=== PATIENT | male | born 1955 | race Caucasian/White ===

== ENCOUNTER 2023-02-05 14:58 | Inpatient (IN) | payer MEDICARE ==
[~2023-02-05] VITALS: Ht 188 cm; Wt 86.1 kg
--- NOTE | ~2023-02-05 | EKG ---
[facility] [address] [facility] [place], [place] [address] Draft EK completed, results pending confirmation PATIENT NAME: JANEEN PERALESJAIRON DWYER Electrocardiogram DATE OF : 53 PHYSICIAN: PRELIMINARY REPORT #: [id number] REPORT IS CONFIDENTIAL AND NOT TO BE RELEASED WITHOUT AUTHORIZATION
[2023-02-05 15:25] LABS: BASE EXCESS, BLOOD GAS -10.9 mmol/L (-2-2); O2 SATURATION, BLOOD GAS 72.6 % (95.0-100.0); OXYGEN RECEIVED, BLOOD GAS 100%; PCO2, BLOOD GAS 66.5 mmHg (35-45); PH, BLOOD GAS 7.09 (7.35-7.45); PO2, BLOOD GAS 59 mmHg (80-100); TOTAL CO2, BLOOD GAS 22.1
[2023-02-05 15:37] LABS: HEMATOCRIT 46.3 % (35.0-50.0); MCH 29.3 (27-36); MCHC 30.3 g/dl (30-36); MCV 96.6 fl (81-99); PLATELET COUNT 138 K/uL (140-440); RBC 4.79 M/ul (4.3-5.7); RDW 18.1 (10.5-15.0)
[2023-02-05 16:03] LABS: ALBUMIN/GLOBULIN RATIO 0.91 (1.1-2.4); ANION GAP 24.1 (7-21); BILIRUBIN, TOTAL 1.2 ng/dL (0.2-1.0); BUN/CREATININE RATIO 37.31 (6.0-28.6); CALCIUM 8.5 mg/dL (8.5-10.1); CREATININE, SERUM 1.34 mg/dL (0.70-1.30); POTASSIUM 5.1 mmol/L (3.5-5.1); PROTEIN, TOTAL 6.3 g/dL (6.4-8.2)
[2023-02-05 16:03] LABS: INFLUENZA B NAA NEGATIVE (NEGATIVE); RESPIRATORY SYNCYTIAL VIR NAA NEGATIVE (NEGATIVE)
[2023-02-05 16:05] LABS: BANDS, MANUAL DIFF 1; LACTIC ACID, BLOOD 12.9 mmol/L (0.4-2.0); LYMPHOCYTES, MANUAL DIFF 30; MONOCYTES, MANUAL DIFF 6; NEUTROPHILS, MANUAL DIFF 63
[2023-02-05 16:30] LABS: BASE EXCESS, BLOOD GAS -12.4 mmol/L (-2-2); HCO3, BLOOD GAS 18.2 mmol/L (22-26); O2 SATURATION, BLOOD GAS 81.7 % (95.0-100.0); OXYGEN RECEIVED, BLOOD GAS 100%; PCO2, BLOOD GAS 62.4 mmHg (35-45); PH, BLOOD GAS 7.08 (7.35-7.45); PO2, BLOOD GAS 71 mmHg (80-100); TOTAL CO2, BLOOD GAS 20.1
[2023-02-05 22:21] LABS: BASE EXCESS, BLOOD GAS -17.8 mmol/L (-2-2); HCO3, BLOOD GAS 14.3 mmol/L (22-26); O2 SATURATION, BLOOD GAS 93.3 % (95.0-100.0); OXYGEN RECEIVED, BLOOD GAS NOT STATED; PH, BLOOD GAS 6.98 (7.35-7.45); PO2, BLOOD GAS 99 mmHg (80-100); TOTAL CO2, BLOOD GAS 16.2
[2023-02-05 22:39] LABS: INR 1.27 (0.80-1.30); PROTIME 15.5 Sec (11.2-14.2)
[2023-02-06] VITALS (27 sets, daily range): BP systolic 88–103; BP diastolic 70–80
--- NOTE | 2023-02-06 01:05 | NUR ---
NEW EPI BAG HUNG, UNABLE TO SCAN AT THIS TIME.
--- NOTE | 2023-02-06 02:07 | NUR ---
PT ARRIVED TO UNIT, RN RECIEVED REPORT BEDSIDE. PT IS INTUBATED AT THIS TIME, VENTILATOR HOOKED UP SPO2 AT 95%. PT OG CONNECTED TO LOW INTERMITTENT SUCTION. PT REMAINS MAXED OUT ON LEVOPHED DRIP AND AT 12 MCG/MIN OF EPI, BP IS STABLE. BICARB IN D5% IS RUNNING AT 150ML/HR. PT IS UNRESPONSIVE TO PAIN AND DOES NOT HAVE A GAG REFLEX. PT PUPILS ARE INTERMITTENTLY CHANGING AND SLUGGISH. PROVIDER CALLED AND INFORMED. PT DOES HAVE SPONTANEOUS MOVEMENT OF THE RIGHT LEG BUT NOTHING PURPOSFUL. PT REMAINS CONNECTED TO THE COOLING BLANKET WITH A GOAL OF 98.6, PT TEMP AFTER TRANSPORTING IS 100.4. PT REMAINS WITHOUT RESTRAINTS THERE IS MINIMAL RESPONSE. ALL SEDATION MEDICATION IS OFF PRIOR TO ARRIVAL. URINE OUTPUT IS MINIMAL AT ROUGHLY 235ML SINCE ARRIVAL TO THE ER.
--- NOTE | 2023-02-06 02:25 | NUR ---
NEW BAG OF EPI HUNG, UNABLE TO SCAN AT THIS TIME
--- NOTE | 2023-02-06 03:45 | NUR ---
NEW BAG OF EPI HUNG, UNABLE TO SCAN AT THIS TIME.
--- NOTE | 2023-02-06 04:00 | NUR ---
PT REMAINS ON IV PRESSORS, BP STABLE AT THE MOMENT. PT ALSO REMAINS ON THE COOLING BLANKET WITH A GOAL TEMP OF 98.6, CURRENT TEMP OF 97.3. WARM BLANKETS ALSO APPLIED TO PT. PT BEGAN TO OVER BREATH VENTILATOR AND SPO2 BEGAN TO DESATURATE, RT INFORMED. PROVIDER AWARE, FENT DRIP STARTED AT 12.5MCG/HR FOR COMFORT. PT CONTINUES TO HAVE NON PURPOSFUL MOVEMENT IN REGINO FEET. PT ALSO GRIMANCES TO LIGHT WHEN CHECKING PUPILS. PT PUPILS INTERMITTENTLY UNEQUAL AND SLUGGISH. PT DOES NOT REPSOND TO PAIN AND DOES NOT HAVE A GAG.
[2023-02-06 05:32] LABS: MCH 29.7 (27-36); MCV 98.8 fl (81-99); RBC 4.35 M/ul (4.3-5.7); RDW 17.9 (10.5-15.0)
[2023-02-06 05:47] LABS: BANDS, MANUAL DIFF 18; MONOCYTES, MANUAL DIFF 5; NEUTROPHILS, MANUAL DIFF 22
[2023-02-06 05:48] LABS: ALBUMIN 2.3 g/dL (3.4-5.0); ALBUMIN/GLOBULIN RATIO 0.79 (1.1-2.4); ANION GAP 26.7 (7-21); BILIRUBIN, TOTAL 0.9 ng/dL (0.2-1.0); BUN/CREATININE RATIO 29.67 (6.0-28.6); CALCIUM 6.9 mg/dL (8.5-10.1); CREATININE, SERUM 1.82 mg/dL (0.70-1.30); POTASSIUM 5.7 mmol/L (3.5-5.1); PROTEIN, TOTAL 5.2 g/dL (6.4-8.2)
--- NOTE | 2023-02-06 06:00 | NUR ---
PT VS REMAIN UNCHANGED, PT CONTINUES TO REQUIRE PRESSORS AND REMAINS ON BICARB DRIP WELL FENTAYL DRIP. NO CHANGES IN NEURO STATUS. PT COMPLIANT WITH VENTILATOR AND MAINTAIN SATURATIONS. ORAL CARE PROVIDED. PT REMAINS ON COOLING BLANKET WITH A TEMP 98.6.
--- NOTE | 2023-02-06 06:02 | NUR ---
NEW BAG OF EPI HUNG AT THIS TIME, UNABLE TO SCAN
--- NOTE | 2023-02-06 07:15 | NUR ---
0700- REPORT RECEIVED FROM DIESEL FITTER MECHANIC RN. ALL QUESTIONS AND CONCERNS WERE ADDRESSED. GTTS FENTANYL 12.5MCG/HR EPINEPHRINE 9MCG NOREPINEPHRINE 46 SODIUM BICARB 125 PATIENT DIAZ IS NOTED TO HAVE A RASS OF -5. MOBILITY EXTREMELY IMPAIRED, ETT PRESENT VENT SETTINGS [id number], PEEP ,18 VTE ,500 RR, 22 NEURO- UNAROUSABLE, NO GAG NOTED CARDIAC- SR 80-95, GENERALIZED EDEMA, SCLERAL EDEMA, COOLING BLAKET RR- VENTILATOR SEE ABOVE SETTINGS GI/- INDWELLING FRANCO CATHETER PRESENT, NPO, OG PRESENT INTEGUMENTARY- MOTTLED SKIN, MULTIPLE SCRATCHES AND ABRASIONS PLAN- AWAITING FAMILY FROM [place] TO COME AND MAKE LIFE SUSTAINING DECISIONS
--- NOTE | 2023-02-06 07:20 | NUR ---
ER CALLED WITH PT BROTHER AMBER PHONE NUMBER - IT IS ON CHART AND THIS RN PROVIDED IT TO DR CARDOSO WHO IS IN UNIT REVIEWING CHART.
[2023-02-06 09:10] LABS: BASE EXCESS, BLOOD GAS -10.2 mmol/L (-2-2); HCO3, BLOOD GAS 17.7 mmol/L (22-26); O2 SATURATION, BLOOD GAS 92.3 % (95.0-100.0); OXYGEN RECEIVED, BLOOD GAS 100%; PCO2, BLOOD GAS 45.7 mmHg (35-45); PO2, BLOOD GAS 74 mmHg (80-100); TOTAL CO2, BLOOD GAS 19.1
--- NOTE | 2023-02-06 09:21 | NUR ---
PATIENT CURRENTLY ON VENT WITH CARE MEETING SCHEDULED FOR 11 AM WITH PATIENTS BROTHER AMBER. SPOKE WITH BERNADETTE IN SPIRITUAL CARE WHO WAS IN THE ER YESTERDAY WITH THE PATIENT. PATIENT AND HIS BROTHER LIVE IN [place], BUT WERE VISITING [place] FOR A HUNTING TRIP.
--- NOTE | 2023-02-06 10:11 | NUR ---
BROTHERS OF PATIENT IN ROOM AT THIS TIME WITH KATHERYN DOUGLAS.
--- NOTE | 2023-02-06 10:30 | NUR ---
1030- MD CARDOSO IN ROOM WITH ATIF'S BROTHERS ANGEL AND AMBER. DISCUSSING PLAN OF CARE AND POSSIBLE TRANSITIONT TO COMFORT CARE 1045-MD CARDOSO HAS CONFIRMED WITH PATIENTS ADULT DAUGHTERS THAT PATIENTS BROTHERS WHO ARE PRESENT WILL MAKE MEDICAL DECISION 1100- FAMILY HAS DECIDED TO TRANSITION TO COMFORT CARE. BROTHERS HAVE DECIDED TO LEAVE THE PREMISES DURING PATIENTS PASSING 1120- COMFORT CARE INITIATED
--- NOTE | 2023-02-06 10:38 | NUR ---
BROTHERS ANGEL AND RIDDHI IN ROOM. INDICATED THEY ARE IN CONTACT WITH PT'S DAUGHTERS. STATED THEY WERE UNSURPRISED BY EPISODE HAD NOTICED PT DECLINING IN HEALTH. ASSURED THEM OF MY ONGOING PRAYERS. PRAYED FOR PEACE AND COMFORT FOR PT AND FAMILY.
--- NOTE | 2023-02-06 10:56 | NUR ---
IN ROOM DR INFORMED BROTHERS OF EXPECTED OUTCOME. BROTHERS VOICED SUPPORT FOR WITHDRAWL OF CARE. DR. CARDOSO INDICATED NEED TO CALL DAUGTHERS. BROTHER PROVIDED NAMES AND NUMBERS OF DAUGHTERS AND INDICATED UNDERSTANDING. PROVIDED PASTORAL CARE TO BROTHERS. SAID PRAYER FOR PEACE AND COMFORT.
--- NOTE | 2023-02-06 11:18 | NUR ---
PER DR. OJEDA PATIENT FAMILY HAS CHOSEN TO WITHDRAWL CARE AT THIS TIME. CONTACT INFORMATION UPDATE FOR PATIENT BROTHER ANGEL [phone].
--- NOTE | 2023-02-06 11:42 | NUR ---
1142: SPIRITUAL CARE AT BEDSIDE. RT PRESENT 97.3 77/63 (70) NOREPINEPHRINE, EPINEPHRINE, AND SODIUM BICARB DRIP DC'D
--- NOTE | 2023-02-06 11:52 | NUR ---
PT COMFORT CARE , CALLED TO BEDSIDE FOR DC OF VENTILATOR AND EXTUBATION, PT WAS EXTUBATED , OG TUBE REMOVED AT THAT TIME RN AT BEDSIDE , CLEANED PT MOUTH AND IS PROVIDING COMFORT CARE , SPIRITUAL CARE AT BEDSIDE.
--- NOTE | 2023-02-06 12:58 | NUR ---
1253- PATIENT PASCUAL PERALES PEACEFULLY AT 1253 WITH SPIRITUAL CARE BRYSON AVALOS AT BEDSIDE. MD CARDOSO OTIFIED AND IS CURRENTLY ON PHONE WITH PATIENTS DAUGHTERS DAYNA AND RONALD COMFORT CARE MEASURES WERE UNCOMPLICATED. PATIENT BELONGINGS HANDED OVER TO BROTHER ANGEL. LOOSE CHANGE, GARCIA, AND KENO TICKETS. FENTANYL GTT DCD ORGAN DONATION NOTIFIED.
--- NOTE | 2023-02-06 13:51 | NUR ---
SAID PRAYERS FOR PEACE AND COMFORT PT WAS EXTUBATED. STAYED IN ROOM WITH PATIENT UNTIL EXPIRATION. SAID PRAYER OF COMMENDATION. CALLED DAUGHTER DAYNA. REQUESTED [employer]. PT HAD NO BELONGINGS IN ROOM. CALLED [employer] [phone].
--- NOTE | 2023-02-06 14:12 | NUR ---
HEARING AIDES WENT TO HOME WITH BODY. DEPARTED FACILITY 1410.
[2023-02-11 10:32] LABS: LYMPHOCYTES, MANUAL DIFF 55
[2023-02-11 10:34] LABS: HEMOGLOBIN 12.9 g/dL (12.0-18.0)
[2023-02-11 10:35] LABS: PLATELET COUNT 81 K/uL (140-440)
== END 2023-02-06 14:05 | DRG 208 ==
LOC: ED 14:58 → EDBD 14:59 → CCU 15:00
PROVIDERS: Emergency Medicine; Family Medicine; ADMIT Family Medicine; ATTEND Family Medicine
PROC: 5A1935Z Respiratory Ventilation, Less than 24 Consecutive Hours (ICD-10-PCS; principal; 2023-02-05)
PROC: 4A133R1 Monitoring of Arterial Saturation, Peripheral, Percutaneous Approach (ICD-10-PCS; 2023-02-05)
PROC: 3E033XZ Introduction of Vasopressor into Peripheral Vein, Percutaneous Approach (ICD-10-PCS; 2023-02-05)
PROC: 5A12012 Performance of Cardiac Output, Single, Manual (ICD-10-PCS; 2023-02-05)
PROC: 05HY33Z Insertion of Infusion Device into Upper Vein, Percutaneous Approach (ICD-10-PCS; 2023-02-05)
DX: J96.01 Acute respiratory failure with hypoxia (principal); G93.41 Metabolic encephalopathy; N17.9 Acute kidney failure, unspecified; M96.A3 Multiple fractures of ribs associated with chest compression and cardiopulmonary resuscitation; J90 Pleural effusion, not elsewhere classified; R18.8 Other ascites; M96.A1 Fracture of sternum associated with chest compression and cardiopulmonary resuscitation; R57.9 Shock, unspecified; E87.4 Mixed disorder of acid-base balance; Z51.5 Encounter for palliative care; Z20.822 Contact with and (suspected) exposure to COVID-19; I46.9 Cardiac arrest, cause unspecified; R74.01 Elevation of levels of liver transaminase levels; R60.0 Localized edema; R16.1 Splenomegaly, not elsewhere classified; R79.89 Other specified abnormal findings of blood chemistry; E87.5 Hyperkalemia; D73.5 Infarction of spleen
CPT/HCPCS: 31500; 36415; 36600; 71045; 71260; 74177; 80053; 82803; 83605; 83735; 83880; 84484; 85025; 85379; 85610; 87040; 87502; 93005; 93010; 94002; 94640; 96366; 96368; A9270; C9113; G0378; J0171; J0696; J1940; J3010; J7030; J7070; Q9967; U0002